=== PATIENT | female | born 1950 | race Caucasian/White ===

== ENCOUNTER 2022-05-29 12:28 | Observation (INO) ==
[2022-05-29 13:27] LABS: Basophils % 0.3 % (0.0-0.8); Eosinophils # 0.4 10*3/uL (0.0-0.87); Eosinophils % 4.5 % (0.00-10.9); Hematocrit 31.8 VOL% (35.7-47.0); Hemoglobin 10.2 GM/DL (12.0-16.0); Immature Granulocytes % 0.3 %; Immature Granulocytes Absolute 0.03 #; Lymphocytes # 1.3 10*3/uL (1.4-4.0); Lymphocytes % 15.1 % (21.3-54.2); Mean Corpuscular HGB Conc 32.1 GM/DL (32-36); Mean Corpuscular Volume 86.4 FL (87-102); Monocytes % 11.2 % (1.7-12.7); Neutrophils % 68.6 % (38.7-73.9); Platelet Count 208 T/CUMM (130-400); Red Blood Count 3.68 MC/CUMM (3.8-5.5); Red Cell Distribution Width 15.7 % (9.3-17.3); White Blood Count 8.7 T/CUMM (4-12)
[2022-05-29 13:45] LABS: Alanine Aminotransferase 12 U/L (13-56); Albumin 3.9 G/DL (3.4-5.0); Alkaline Phosphatase 67 U/L (45-117); Aspartate Amino Transferase 14 U/L (0-37); Bilirubin,Total < 0.39 MG/DL (0.20-1.00); Blood Urea Nitrogen 44 MG/DL (7-18); Calcium 9.6 MG/DL (8.5-10.1); Carbon Dioxide 24 MMOL/L (21-32); Chloride 111 MMOL/L (98-107); Glucose 105 MG/DL (74-106); Potassium 3.2 MMOL/L (3.5-5.1); Sodium 143 MMOL/L (136-145); Total Protein 7.3 G/DL (6.4-8.2)
[2022-05-29 14:49] LABS: Hyaline Casts,Urine 4 /LPF (0-3)
[2022-05-29 14:51] LABS: Bilirubin,Urine Negative (Negative); Blood, Urine Negative (Negative); Glucose,Urine (UA) Negative (Negative); Ketones,Urine Negative (Negative); Nitrite,Urine Negative (Negative); Protein,Urine Negative (Negative); Urine Appearance Clear (Clear); Urine Color Yellow (Yellow); Urine Specific Gravity 1.025 (1.001-1.035); Urine Urobilinogen 0.2 eU/dL (<2.0); Urine pH 5.5 (4.5-8.0)
[2022-05-29] MEDS ORDERED: LEVOFLOXACIN INJ 500 MG/100 ML PREMIX IV STA (15:09)
[2022-05-29] MEDS ORDERED: DOXYCYCLINE HYCLATE INJ 100 MG in SODIUM CHLORIDE 0.9% 100 ML IV STA (15:12)
[2022-05-29] MEDS ORDERED: cefTRIAXone 1,000 MG in SODIUM CHLORIDE 0.9% 100 ML IV STA (15:12)
[2022-05-29] MEDS ORDERED: ACETAMINOPHEN 325 MG TABLET PO PRN (15:17)
[2022-05-29] MEDS ORDERED: ONDANSETRON 4 MG/2 ML VIAL IV PRN (15:17)
[2022-05-29] MEDS ORDERED: DOCUSATE SODIUM 100 MG CAPSULE PO PRN (15:59)
[2022-05-29] MEDS ORDERED: SODIUM CHLORIDE 0.9% 500 ML IV STA (16:11)
[2022-05-29] MEDS ORDERED: ENOXAPARIN 30 MG/0.3 ML SYRINGE SUBCUT SCH (17:00)
[2022-05-29] MEDS: SODIUM CHLORIDE 0.9% 1,000 ML IV SCH (17:27)
[2022-05-29] MEDS: POTASSIUM CHLORIDE 20 MEQ TABLET PO PRN (18:09)
[2022-05-29] MEDS ORDERED: ZALEPLON 5 MG CAPSULE PO SCH (21:00)
[2022-05-29] MEDS ORDERED: rOPINIRole 0.25 MG TABLET PO SCH (21:00)
[2022-05-29] MEDS: GABAPENTIN 300 MG CAPSULE PO SCH (21:37)
[2022-05-29] MEDS: gemfibroziL 600 MG TABLET PO SCH (21:37)
[2022-05-29] MEDS: HydrOXYzine PAMOATE 25 MG CAPSULE PO SCH (21:37)
[2022-05-29] MEDS: LACTULOSE 20 GM/30 ML UDCUP PO SCH (21:37)
[2022-05-29] MEDS: METOPROLOL TARTRATE 50 MG TABLET PO SCH (21:38)
[2022-05-30] MEDS ORDERED: DOXYCYCLINE HYCLATE INJ 100 MG in SODIUM CHLORIDE 0.9% 100 ML IV SCH (03:00)
[2022-05-30 05:14] LABS: Basophils % 0.6 % (0.0-0.8); Eosinophils # 0.4 10*3/uL (0.0-0.87); Eosinophils % 8.7 % (0.00-10.9); Hematocrit 27.2 VOL% (35.7-47.0); Hemoglobin 8.8 GM/DL (12.0-16.0); Immature Granulocytes % 0.2 %; Immature Granulocytes Absolute 0.01 #; Lymphocytes # 1.4 10*3/uL (1.4-4.0); Lymphocytes % 29.6 % (21.3-54.2); Mean Corpuscular HGB Conc 32.4 GM/DL (32-36); Mean Corpuscular Volume 87.7 FL (87-102); Mean Platelet Volume 10.8 FL (9.6-12.0); Monocytes # 0.6 10*3/uL (0.11-0.8); Monocytes % 12.8 % (1.7-12.7); Neutrophils % 48.1 % (38.7-73.9); Platelet Count 164 T/CUMM (130-400); Red Cell Distribution Width 15.3 % (9.3-17.3); White Blood Count 4.7 T/CUMM (4-12)
[2022-05-30 05:45] LABS: Alanine Aminotransferase 11 U/L (13-56); Albumin 3.2 G/DL (3.4-5.0); Alkaline Phosphatase 61 U/L (45-117); Aspartate Amino Transferase 10 U/L (0-37); Bilirubin,Total < 0.39 MG/DL (0.20-1.00); Blood Urea Nitrogen 43 MG/DL (7-18); Calcium 8.7 MG/DL (8.5-10.1); Carbon Dioxide 19 MMOL/L (21-32); Chloride 117 MMOL/L (98-107); Glucose 89 MG/DL (74-106); Osmolality,Calculated 303.3 MOS/KG (273-304); Potassium 3.3 MMOL/L (3.5-5.1); Sodium 148 MMOL/L (136-145); Total Protein 6.1 G/DL (6.4-8.2)
[2022-05-30] MEDS: SODIUM CHLORIDE 0.9% 1,000 ML IV SCH (07:04)
[2022-05-30] MEDS: IPRATROPIUM 500 MCG/2.5 ML NEB RESP TX SCH ×2 (07:07→10:35)
[2022-05-30] MEDS: POTASSIUM CHLORIDE 20 MEQ TABLET PO PRN (08:35)
[2022-05-30] MEDS: GABAPENTIN 300 MG CAPSULE PO SCH (08:35)
[2022-05-30] MEDS: HydrOXYzine PAMOATE 25 MG CAPSULE PO SCH (08:35)
[2022-05-30] MEDS: METOPROLOL TARTRATE 50 MG TABLET PO SCH (08:36)
[2022-05-30] MEDS: gemfibroziL 600 MG TABLET PO SCH (08:36)
[2022-05-30] MEDS: LACTULOSE 20 GM/30 ML UDCUP PO SCH (08:37)
[2022-05-30] MEDS ORDERED: lisinopriL 20 MG TABLET PO SCH (09:00)
[2022-05-30] MEDS ORDERED: PANTOPRAZOLE 40 MG TABLET PO SCH (09:00)
[2022-05-30] MEDS ORDERED: VENLAFAXINE XR 75 MG CAPSULE PO SCH (09:00)
[2022-05-30] MEDS ORDERED: hydroCHLOROthiazide 25 MG TABLET PO SCH (09:00)
[2022-05-30] MEDS ORDERED: MULTIVITAMIN (OCUVITE) TABLET PO SCH (09:00)
[2022-05-30] MEDS ORDERED: DONEPEZIL 5 MG TABLET PO SCH (09:00)
[2022-05-30] MEDS ORDERED: CALCIUM (CARBONATE)/VITAMIN D 600 MG-400 UNIT TABLET PO SCH (09:00)
[2022-05-30 09:05] LABS: Calcium 8.5 MG/DL (8.5-10.1); Osmolality,Calculated 303.4 MOS/KG (273-304); Potassium 3.5 MMOL/L (3.5-5.1)
[2022-05-30 10:36] VITALS: BP 121/58
[2022-05-30] MEDS ORDERED: AZITHROMYCIN INJ 500 MG in SODIUM CHLORIDE 0.9% 250 ML IV SCH (15:30)
[2022-05-30] MEDS ORDERED: cefTRIAXone 1,000 MG in SODIUM CHLORIDE 0.9% 100 ML IV SCH (15:30)
== END 2022-05-30 11:18 ==
LOC: N.ED 12:28 → N.EDINP 12:28 → SUATTDRO 15:17 → N.3E 16:06
PROVIDERS: ADMIT Internal Medicine; ATTEND Internal Medicine